=== PATIENT | female | born 1950 | race Caucasian/White ===

== ENCOUNTER 2023-04-17 06:38 | Outpatient (CLI) | payer MEDICARE, OTHER, SELFPAY | END 2023-04-17 06:39 | disposition home or self-care (01) | PROVIDERS: PCP Family Medicine; Visit Provider Family Medicine | DX: M54.16 Radiculopathy, lumbar region (principal); M51.36 Other intervertebral disc degeneration, lumbar region | CPT/HCPCS: 64483; J1100; Q9966 ==

== ENCOUNTER 2023-10-11 07:30 | Outpatient (RCR) | payer MEDICARE, OTHER, SELFPAY | END 2024-02-08 23:59 | disposition home or self-care (01) | PROVIDERS: PCP Family Medicine; Visit Provider Family Medicine | DX: N39.41 Urge incontinence (principal); M25.39 Other instability, other specified joint; N81.89 Other female genital prolapse; R29.898 Other symptoms and signs involving the musculoskeletal system; Z51.89 Encounter for other specified aftercare | CPT/HCPCS: 97110; 97140; 97162 ==

== ENCOUNTER 2024-07-02 11:30 | Outpatient (RCR) | payer MEDICARE, OTHER, SELFPAY | END 2024-07-22 10:46 | disposition home or self-care (01) | PROVIDERS: PCP Family Medicine; Visit Provider Urology | DX: N32.81 Overactive bladder (principal); N39.46 Mixed incontinence; N81.11 Cystocele, midline; N81.2 Incomplete uterovaginal prolapse; K59.00 Constipation, unspecified; M79.605 Pain in left leg; Z51.89 Encounter for other specified aftercare | CPT/HCPCS: 97110; 97112; 97140; 97162; 97535 ==